=== PATIENT | male | born 1965 | race Caucasian/White ===

== ENCOUNTER 2022-07-07 18:52 | Inpatient (IN) | payer OTHER ==
[2022-07-07 21:39] LABS: BASO % 0.3 % (0-2.0); EOS % 1.4 % (0-4.5); HEMOGLOBIN 13.6 GM/dL (11.7-16.9); LYMPH % 15.2 % (8-40); MCH 29.6 pg (25.7-33.7); MEAN CELL VOLUME 87.1 fl (80-96); MEAN PLT VOLUME 8.4 fl (7.5-11.1); MONO % 9.8 % (3.8-10.2); NEUT % 73.3 % (42.8-82.8); PLATELET COUNT 259 10^3/uL (134-434); RBC 4.59 M/mm3 (4.00-5.60); RDW 14.2 % (11.9-15.9)
[2022-07-07 22:03] LABS: CALCIUM 8.8 mg/dL (8.5-10.1)
[2022-07-07 22:04] LABS: ALBUMIN 3.3 g/dl (3.4-5.0); BLOOD UREA NITROGEN 13.8 mg/dL (7-18)
[2022-07-07 22:07] LABS: CREATININE 0.8 mg/dL (0.55-1.3)
[2022-07-07 22:09] LABS: BILIRUBIN,TOTAL 0.8 mg/dL (0.2-1); TOT PROT 6.7 g/dl (6.4-8.2)
[2022-07-07] MEDS ORDERED: DOCUSATE SODIUM 100 MG CAPSULE (FP) PO PRN (23:00)
[2022-07-07] MEDS ORDERED: ACETAMINOPHEN 1000 MG/100 ML BAG IVPB PRN (23:02)
[2022-07-08] MEDS ORDERED: CLINDAMYCIN 600MG PREMIX IVPB 600 MG/50 ML BAG IVPB ONE (03:57)
[2022-07-08] MEDS: SODIUM CHLORIDE 1,000 ML IV SCH ×2 (04:00→19:03)
[2022-07-08] MEDS: CLINDAMYCIN 600MG PREMIX IVPB 600 MG/50 ML BAG IVPB SCH ×2 (04:10→12:11)
[2022-07-08 06:41] LABS: BASO % 0.4 % (0-2.0); EOS % 1.6 % (0-4.5); HEMATOCRIT 40.6 % (35.4-49); HEMOGLOBIN 13.4 GM/dL (11.7-16.9); LYMPH % 18.2 % (8-40); MCH 28.7 pg (25.7-33.7); MCHC 33.1 g/dl (32.0-35.9); MEAN CELL VOLUME 86.9 fl (80-96); MONO % 9.5 % (3.8-10.2); NEUT % 70.3 % (42.8-82.8); PLATELET COUNT 263 10^3/uL (134-434); RBC 4.67 M/mm3 (4.00-5.60); RDW 14.3 % (11.9-15.9); WHITE BLOOD COUNT 10.3 K/mm3 (4.0-10.0)
[2022-07-08 06:47] LABS: INR 1.17 (0.83-1.09); PROTHROMBIN TIME (PATIENT) 13.5 SEC (9.7-13.0)
[2022-07-08 06:50] LABS: ACTIVATED PTT 29.8 SECONDS (25.2-36.5)
[2022-07-08 06:59] LABS: CALCIUM 8.9 mg/dL (8.5-10.1)
[2022-07-08 07:00] LABS: BLOOD UREA NITROGEN 11.8 mg/dL (7-18)
[2022-07-08 07:03] LABS: CREATININE 0.8 mg/dL (0.55-1.3)
[2022-07-08] MEDS: INSULIN SLIDING SCALE (NOVOLOG) 1 VIAL SQ SCH ×4 (07:30→21:18)
[2022-07-08 12:04] VITALS: BMI 28.8
[2022-07-08] MEDS: ASPIRIN COATED 81 MG TABLET.EC PO SCH (13:01)
[2022-07-08] MEDS: PIPERACILLIN/TAZOB 3.375 GM 3.375 GM in DEXTROSE 5%-WATER - 50 ML IVPB SCH ×2 (13:01→18:59)
[2022-07-08] MEDS: LISINOPRIL 20 MG TABLET PO SCH (13:01)
[2022-07-08] MEDS: ISOSORBIDE MONONITRATE 30 MG TAB.SR.24H (FP) PO SCH (13:01)
[2022-07-09] MEDS: SODIUM CHLORIDE 1,000 ML IV SCH ×3 (00:40→19:03)
[2022-07-09] MEDS ORDERED: PIPERACILLIN/TAZOBACTAM 3.375 GM VIAL IVPB ONE (01:18)
[2022-07-09] MEDS: PIPERACILLIN/TAZOB 3.375 GM 3.375 GM in DEXTROSE 5%-WATER - 50 ML IVPB SCH ×3 (02:00→18:46)
[2022-07-09] MEDS: INSULIN SLIDING SCALE (NOVOLOG) 1 VIAL SQ SCH ×4 (06:45→22:17)
[2022-07-09] MEDS: LISINOPRIL 20 MG TABLET PO SCH (10:39)
[2022-07-09] MEDS: ISOSORBIDE MONONITRATE 30 MG TAB.SR.24H (FP) PO SCH (10:39)
[2022-07-09] MEDS: ASPIRIN COATED 81 MG TABLET.EC PO SCH (10:39)
[2022-07-09] MEDS ORDERED: INSULIN (NOVOLOG) ASPART 100 UNITS/ML 10ML VIAL ONE (21:56)
[2022-07-09] MEDS: HEPARIN NA (PORCINE) 5,000 UNITS/ML 1ML VIAL SQ SCH (22:16)
[2022-07-10] MEDS: PIPERACILLIN/TAZOB 3.375 GM 3.375 GM in DEXTROSE 5%-WATER - 50 ML IVPB SCH ×3 (02:25→17:20)
[2022-07-10] MEDS: SODIUM CHLORIDE 1,000 ML IV SCH ×2 (06:48→09:00)
[2022-07-10] MEDS: metFORMIN HCL 500 MG TABLET (FP) PO SCH ×2 (06:50→16:41)
[2022-07-10] MEDS: INSULIN SLIDING SCALE (NOVOLOG) 1 VIAL SQ SCH ×4 (06:51→22:06)
[2022-07-10] MEDS: LISINOPRIL 20 MG TABLET PO SCH (09:45)
[2022-07-10] MEDS: ASPIRIN COATED 81 MG TABLET.EC PO SCH (09:45)
[2022-07-10] MEDS: ISOSORBIDE MONONITRATE 30 MG TAB.SR.24H (FP) PO SCH (09:45)
[2022-07-10] MEDS: HEPARIN NA (PORCINE) 5,000 UNITS/ML 1ML VIAL SQ SCH ×2 (09:48→22:08)
[2022-07-10 17:45] LABS: BASO % 0.5 % (0-2.0); EOS % 3.4 % (0-4.5); HEMATOCRIT 39.7 % (35.4-49); HEMOGLOBIN 13.1 GM/dL (11.7-16.9); LYMPH % 21.7 % (8-40); MCH 28.9 pg (25.7-33.7); MEAN CELL VOLUME 87.5 fl (80-96); MEAN PLT VOLUME 8.8 fl (7.5-11.1); MONO % 9.5 % (3.8-10.2); NEUT % 64.9 % (42.8-82.8); PLATELET COUNT 278 10^3/uL (134-434); RBC 4.54 M/mm3 (4.00-5.60); RDW 13.7 % (11.9-15.9); WHITE BLOOD COUNT 7.7 K/mm3 (4.0-10.0)
[2022-07-10 21:48] VITALS: RESP 20
[2022-07-11] MEDS: SODIUM CHLORIDE 1,000 ML IV SCH (02:03)
[2022-07-11] MEDS: PIPERACILLIN/TAZOB 3.375 GM 3.375 GM in DEXTROSE 5%-WATER - 50 ML IVPB SCH ×2 (02:04→10:04)
[2022-07-11] MEDS: metFORMIN HCL 500 MG TABLET (FP) PO SCH (06:32)
[2022-07-11] MEDS: INSULIN SLIDING SCALE (NOVOLOG) 1 VIAL SQ SCH ×2 (06:32→12:17)
[2022-07-11 06:52] VITALS: BP 150/85; PULSE 72; TEMP 98.9
[2022-07-11] MEDS: ASPIRIN COATED 81 MG TABLET.EC PO SCH (10:05)
[2022-07-11] MEDS: ISOSORBIDE MONONITRATE 30 MG TAB.SR.24H (FP) PO SCH (10:06)
[2022-07-11] MEDS: LISINOPRIL 20 MG TABLET PO SCH (10:06)
[2022-07-11] MEDS: HEPARIN NA (PORCINE) 5,000 UNITS/ML 1ML VIAL SQ SCH (10:08)
== END 2022-07-11 16:38 | disposition home or self-care (01) | DRG 603 ==
LOC: JER 18:52 → JERBED 21:36 → J8W 07-08 10:16
PROVIDERS: ADMIT Internal Medicine; ATTEND Family Medicine
DX: L03.115 Cellulitis of right lower limb (principal); E11.9 Type 2 diabetes mellitus without complications; I10 Essential (primary) hypertension; E78.5 Hyperlipidemia, unspecified; I25.10 Atherosclerotic heart disease of native coronary artery without angina pectoris; Z98.61 Coronary angioplasty status
CPT/HCPCS: 36415; 73610-TC-RT-FY; 73630-TC-RT-FY; 73700-TC-RT; 73718-TC-RT; 80048; 80053; 82962; 83036; 85025; 85610; 85651; 85730; 86140; 99285-25; C9803-CS; J1644; U0003; U0005